=== PATIENT | male | born 1985 | race Caucasian/White ===

== ENCOUNTER 2017-06-24 21:03 | Emergency (ER) | payer OTHER ==
[2017-06-24] MEDS ORDERED: ASPIRIN 81 MG CHEWABLE TABLETS PO ONE (21:19)
--- NOTE | 2017-06-24 21:19 | PDOC ---
Rapid Medical Evaluation Time Seen by Provider: 06/24/17 21:14 Medical Evaluation: 06/24/17 21:14 I have performed a brief in-person evaluation of this patient. The patient presents with a chief complaint of: chest pain, worse with respiration, dizziness, pain to mouth "like throbbing inside", symptoms x "months", taking tylenol for pain Pertinent physical exam findings: BP 170/110 I have ordered the following: ekg, cxr, labs The patient will proceed to the ED for further evaluation. Discharge Disposition - Diagnosis Chest pain, Elevated blood pressure reading - Referrals - Patient Instructions - Post Discharge Activity
[2017-06-24 21:38] LABS: BASOPHIL 0.6 % (0-2.0); MCH 29.4 pg (25.7-33.7); MEAN CELL VOLUME 86.3 fl (80-96); MEAN PLT VOLUME 10.5 fl (7.5-11.1); NEUTROPHILS 56.3 % (42.8-82.8); PLATELET COUNT 154 K/MM3 (134-434); RDW 13.6 % (11.9-15.9); WHITE BLOOD COUNT 6.7 K/mm3 (4.0-10.0)
[2017-06-24 21:47] VITALS: TEMP 97.9; BMI 28.6
[2017-06-24] MEDS ORDERED: ASPIRIN 81 MG CHEWABLE TABLETS ONE (21:51)
[2017-06-24 21:56] LABS: INR 1.11 (0.82-1.09); PROTHROMBIN TIME (PATIENT) 12.5 SEC (9.98-11.88)
[2017-06-24 22:16] LABS: ALBUMIN 3.7 g/dl (3.4-5.0); ANION GAP 6 (8-16); CALCIUM 8.2 mg/dL (8.5-10.1); CO2 30 mmol/L (21-32); CREATININE 0.9 mg/dL (0.7-1.3); GLUCOSE,RANDOM 154 mg/dL (74-106); MAGNESIUM 2.1 mg/dL (1.8-2.4); SGOT/AST 31 U/L (15-37); SGPT/ALT 84 U/L (12-78)
[2017-06-24 22:20] LABS: ALK PHOS 65 U/L (45-117); BILIRUBIN,TOTAL 0.7 mg/dL (0.2-1.0); CPK 288 IU/L (39-308); TOT PROT 6.8 g/dl (6.4-8.2); TROPONIN I < 0.02 ng/ml (0.00-0.05)
--- NOTE | 2017-06-24 22:30 | PDOC ---
History of Present Illness - General History Source: Patient Exam Limitations: No Limitations - History of Present Illness Initial Comments: 06/24/17 22:54 The patient is a 31 year old male, with no significant past medical history, who presents to the emergency department complaining of intermittent headaches and chest pain for approximately 5 months. The patient reports he has episodes where he feels like his bp is high, but never actually measured it. With these episodes he reports associated chest pain and headache, which are nonradiating in nature. Patient reports the elevated bp could be due to his nerves, but lately his episodes have been happening more often than usual. He denies any associated diaphoresis, palpitations, shortness of breath, or lower extremity edema. He denies any changes in vision, dizziness, lightheadedness, or chills. He denies any recent travel or sick contacts. Allergies: NKDA Past Surgical History: None reported. Social History: Non smoker. No ETOH or recreational drug use. No cocaine use. Family History: Mother recently diagnosed with hypertension <Shira Patel - Last Filed: 06/24/17 23:41> - General History Source: Patient <Jamar Johnson - Last Filed: 06/24/17 23:48> - General Chief Complaint: Chest Pain Stated Complaint: CHEST PAIN Time Seen by Provider: 06/24/17 21:14 Past History <Shira Patel - Last Filed: 06/24/17 23:41> - Past Medical History COPD: No - Suicide/Smoking/Psychosocial Hx Smoking History: Never smoked Have you smoked in the past 12 months: No Information on smoking cessation initiated: No Hx Alcohol Use: No Drug/Substance Use Hx: No Substance Use Type: None <LonniekatJamar - Last Filed: 06/24/17 23:48> - Past Medical History Allergies/Adverse Reactions: Allergies Allergy/AdvReac Type Severity Reaction Status Date / Time No Known Allergies Allergy Verified 06/24/17 21:19 Home Medications: Ambulatory Orders NK [No Known Home Medication] 06/24/17 Review of Systems - Review of Systems Able to Perform ROS?: Yes Comments:: 06/24/17 22:54 CONSTITUTIONAL: Absent: fever, no chills, no fatigue EYES: Absent: visual changes ENT: Absent: ear pain, no sore throat CARDIOVASCULAR: Present: chest pain Absent: no palpitations RESPIRATORY: Absent: cough, no SOB GI: Absent: abdominal pain, no nausea, no vomiting, no constipation, no diarrhea GENITOURINARY: Absent: dysuria, no frequency, no hematuria MUSCULOSKELETAL: Absent: back pain, no arthralgia, no myalgia SKIN: Absent: rash NEURO: Present: headache Absent: numbness, tingling, dizziness, lightheadedness <JorgePeacejakob - Last Filed: 06/24/17 23:41> *Physical Exam - Vital Signs Last Vital Signs Temp Pulse Resp BP Pulse Ox 97.9 F 81 17 136/91 99 06/24/17 21:14 06/24/17 22:41 06/24/17 21:14 06/24/17 22:41 06/24/17 22:41 - Physical Exam Comments: 06/24/17 22:55 GENERAL: Well-appearing, well-nourished. No apparent distress. BP intially 170/100. HEENT: Normocephalic, atraumatic. PERRL, EOM intact. CARDIOVASCULAR: Normal S1, S2. Regular rate and rhythm. PULMONARY: Clear to auscultation bilaterally. ABDOMEN: Soft, non-distended, non-tender. EXTREMITIES: Normal ROM in all four extremities. No gross deformities. SKIN: Warm, dry. No rash NEUROLOGICAL: No focal neurological deficits. <JorgePeacejakob - Last Filed: 06/24/17 23:41> - Vital Signs Last Vital Signs Temp Pulse Resp BP Pulse Ox 97.9 F 98 H 17 170/110 100 06/24/17 21:14 06/24/17 21:14 06/24/17 21:14 06/24/17 21:14 06/24/17 21:14 <Jamar Johnson - Last Filed: 06/24/17 23:48> ED Treatment Course - LABORATORY CBC & Chemistry Diagram: 06/24/17 21:30 06/24/17 21:30 - ADDITIONAL ORDERS Additional order review: Laboratory Results 06/24/17 06/24/17 21:30 21:30 PT with INR 12.50 H INR 1.11 Sodium 139 Potassium 3.4 L Chloride 103 Carbon Dioxide 30 Anion Gap 6 L BUN 14 Creatinine 0.9 Creat Clearance w eGFR > 60 Random Glucose 154 H Calcium 8.2 L Magnesium 2.1 Total Bilirubin 0.7 AST 31 ALT 84 H Alkaline Phosphatase 65 Creatine Kinase 288 Troponin I < 0.02 Total Protein 6.8 Albumin 3.7 06/24/17 21:30 RBC 5.65 H MCV 86.3 MCHC 34.0 RDW 13.6 MPV 10.5 Neutrophils % 56.3 Lymphocytes % 33.8 Monocytes % 8.3 Eosinophils % 1.0 Basophils % 0.6 - RADIOLOGY Radiology Studies Ordered: 06/24/17 22:56 EXAM: CXR INTERPRETED BY: Dr. Morel REVIEWED BY: Dr. Johnson IMPRESSION: Normal chest. Radiograph Interpretation: 06/24/17 23:42 EXAM: Head CT INTERPRETED BY: Dr. Morel REVIEWED BY: Dr. Johnson IMPRESSIO: Normal CT scan of the head with no evidence of acute intracranial pathology - Medications Given in the ED: ED Medications Discontinued Medications Generic Name Dose Route Start Last Admin Trade Name Freq PRN Reason Stop Dose Admin Aspirin 162 mg 06/24/17 21:19 06/24/17 22:25 Asa - PO 06/24/17 21:20 162 mg ONCE ONE Administration <Shira Patel - Last Filed: 06/24/17 23:41> - LABORATORY CBC & Chemistry Diagram: 06/24/17 21:30 06/24/17 21:30 - ADDITIONAL ORDERS Additional order review: Laboratory Results 06/24/17 21:30 PT with INR 12.50 H INR 1.11 06/24/17 21:30 RBC 5.65 H MCV 86.3 MCHC 34.0 RDW 13.6 MPV 10.5 Neutrophils % 56.3 Lymphocytes % 33.8 Monocytes % 8.3 Eosinophils % 1.0 Basophils % 0.6 - Medications Given in the ED: ED Medications Discontinued Medications Generic Name Dose Route Start Last Admin Trade Name Freq PRN Reason Stop Dose Admin Aspirin 162 mg 06/24/17 21:19 06/24/17 22:25 Asa - PO 06/24/17 21:20 162 mg ONCE ONE Administration <Jamar Johnson - Last Filed: 06/24/17 23:48> Medical Decision Making - Medical Decision Making 06/24/17 23:46 Dr. Johnson: The scribe's documentation has been prepared under my direction and personally reviewed by me in its entirery. I confirm that the note above accurately reflects all work, treatment, procedures, and medical decision making performed by me. Pt ct scan and lab work return to be negative. Pt advised to follow up with internal medicine for evaluation of blood pressure for subsequent visit. <Jamar Johnson - Last Filed: 06/24/17 23:48> *DC/Admit/Observation/Transfer - Attestations Scribe Attestion: 06/24/17 22:55 Documentation prepared by Shira Patel, acting as medical review specialist for Jamar Johnson DO. <Shira Patel - Last Filed: 06/24/17 23:41> - Discharge Dispostion Admit: No <Jamar Johnson - Last Filed: 06/24/17 23:48> Diagnosis at time of Disposition: Chest pain, Elevated blood pressure reading, Anxiety - Discharge Dispostion Disposition: HOME Condition at time of disposition: Stable - Referrals Referrals: Vaishali Armijo MD [Staff Physician] - - Patient Instructions Printed Discharge Instructions: DI for Chest Pain, DI for Anxiety -- Adult Additional Instructions: PLease follow up with the doctor referred to you to monitor your blood pressure. Return if any problems Print Language: SOUTH SUDANESE
[2017-06-24 22:42] VITALS: BP 136/91; PULSE 81
--- NOTE | 2017-06-25 09:15 | EKG ---
Test Reason : Blood Pressure : / mmHG Vent. Rate : 076 BPM Atrial Rate : 076 BPM P-R Int : 160 ms QRS Dur : 092 ms QT Int : 364 ms P-R-T Axes : 054 090 017 degrees QTc Int : 409 ms NORMAL SINUS RHYTHM WITH SINUS ARRHYTHMIA RIGHTWARD AXIS NON-SPECIFIC INTRA-VENTRICULAR CONDUCTION DELAY NO PREVIOUS ECGS AVAILABLE Confirmed by MATY LACY MD ([id number]) on 06/25/2017 9:14:52 AM Referred By: Confirmed By:MATY LACY MD
== END 2017-06-24 23:54 | disposition home or self-care (01) ==
LOC: JER 21:03
DX: R07.89 Other chest pain (principal); R03.0 Elevated blood-pressure reading, without diagnosis of hypertension; F41.9 Anxiety disorder, unspecified
CPT/HCPCS: 36415; 70450-TC; 71020-TC; 80053; 82550; 82553; 83735; 84484; 85025; 85610; 93005; 93010; 99281-25

== ENCOUNTER 2017-11-08 20:52 | Emergency (ER) | payer SELFPAY ==
[2017-11-08 20:58] VITALS: BP 150/90; PULSE 71; TEMP 98.3; BMI 36.3
--- NOTE | 2017-11-08 20:59 | PDOC ---
Rapid Medical Evaluation Time Seen by Provider: 11/08/17 20:54 Medical Evaluation: Allergies Allergy/AdvReac Type Severity Reaction Status Date / Time No Known Allergies Allergy Verified 06/24/17 21:19 I have performed a brief in-person evaluation of this patient. The patient presents with a chief complaint of: lower gum pain x 6 months. has taken tylenol. Has not seen a dentist Pertinent physical exam findings: erythematous lower gingiva, growing over bottom of teeth. Bleeding started with minimal pressure. No painful teeth or obvious dental caries. I have ordered the following: motrin. pt has gingivitis. Will discharge from triage and provide dental referral. Discharge Disposition - Diagnosis Gingivitis - Referrals - Patient Instructions Printed Discharge Instructions: DI for Gingivitis Additional Instructions: Discharge Instructions: -You have gingivitis -You have to floss your teeth every single day -You need to rinse with Listerine every day -You can take Motrin for pain with food -You must follow up with a dentist as soon as possible: [facility] [address] Open 4:00 PM - 9:00 PM Instrucciones de descarga: -tiene gingivitis -usted tiene que FLOSS jakcelin dientes cada solo da -es necesario enjuagar con Listerine todos los allison -Usted puede lucia Motrin para el dolor con la comida -usted debe claudio seguimiento a un dentista lo antes posible: [facility] [address] abierto 4:00 PM-9:00 PM Print Language: MALAGASY - Post Discharge Activity
[2017-11-08] MEDS ORDERED: IBUPROFEN 600 MG TABLET (FP) PO ONE (21:00)
== END 2017-11-08 21:22 | disposition home or self-care (01) ==
LOC: JERFT 20:52
DX: K05.10 Chronic gingivitis, plaque induced (principal)
CPT/HCPCS: 99281-25

== ENCOUNTER 2018-03-27 12:02 | Emergency (ER) | payer SELFPAY ==
[2018-03-27 12:18] VITALS: BMI 30.2
[2018-03-27] MEDS ORDERED: DEXAMETHASONE SOD PHOSPHATE 20 MG/5 ML VIAL IVPB ONE (12:39)
[2018-03-27] MEDS ORDERED: KETOROLAC TROMETHAMINE 30 MG/1 ML VIAL IVPUSH ONE (12:39)
[2018-03-27] MEDS ORDERED: CLINDAMYCIN 600MG PREMIX IVPB 600 MG/50 ML BAG IVPB ONE ×2 (12:41→12:55)
--- NOTE | 2018-03-27 12:44 | PDOC ---
History of Present Illness - General Chief Complaint: Sore Throat Stated Complaint: SORE THROAT Time Seen by Provider: 03/27/18 12:19 History Source: Patient Exam Limitations: No Limitations - History of Present Illness Initial Comments: 03/27/18 12:43 32 yr male with sore throat for 3 days, unmeasured fever last night. Pt states increasing pain and diff swallowing right side. no PMHX. no allergies. 03/27/18 13:25 Severity: moderate Past History - Past Medical History Allergies/Adverse Reactions: Allergies Allergy/AdvReac Type Severity Reaction Status Date / Time No Known Allergies Allergy Verified 03/27/18 12:18 Home Medications: Ambulatory Orders Clindamycin [Cleocin -] 300 mg PO Q6HPO #40 capsule 03/27/18 Ibuprofen 600 mg PO Q6H #20 tablet 03/27/18 Prednisone [Deltasone] 60 mg PO DAILY #12 tablet 03/27/18 COPD: No - Suicide/Smoking/Psychosocial Hx Smoking History: Never smoked Have you smoked in the past 12 months: No Hx Alcohol Use: No Drug/Substance Use Hx: No Substance Use Type: None Review of Systems - Review of Systems Able to Perform ROS?: Yes Is the patient limited Welsh proficient: Yes Constitutional: Yes: Symptoms Reported, Fever HEENTM: Yes: Throat Pain, Throat Swelling, Difficulty Swallowing *Physical Exam - Vital Signs Last Vital Signs Temp Pulse Resp BP Pulse Ox 99.6 F 100 H 20 142/97 99 03/27/18 12:16 03/27/18 12:16 03/27/18 12:16 03/27/18 12:16 03/27/18 12:16 - Physical Exam General Appearance: Yes: Nourished, Appropriately Dressed HEENT: positive: EOMI, JOSÉ, Pharyngeal Erythema, Other ( pooling of secretions , edematous right tonsil with trismus, right ear and dental pain ) Neck: positive: Lymphadenopathy (R). negative: Tender Respiratory/Chest: positive: Lungs Clear, Normal Breath Sounds. negative: Chest Tender Cardiovascular: positive: Regular Rhythm, Regular Rate Musculoskeletal: positive: Normal Inspection Extremity: positive: Normal Capillary Refill, Normal Inspection, Normal Range of Motion Integumentary: positive: Normal Color, Dry, Warm ED Treatment Course - LABORATORY CBC & Chemistry Diagram: 03/27/18 14:22 03/27/18 14:22 Medical Decision Making - Medical Decision Making 03/27/18 12:47 cc: sore throat , fever , diff swallowing. pain is localized on the right side to ear, positive trismus will swab for strep will transfer to the main for further care R/O CLIENT SERVICE COORDINATOR IV steroids , toradol, IV clindamycin endorsed to Suzanne FARMER who will assume care charge nurse Gia parsons. *DC/Admit/Observation/Transfer Diagnosis at time of Disposition: Peritonsillar cellulitis - Discharge Dispostion Disposition: HOME Condition at time of disposition: Improved - Prescriptions Prescriptions: Clindamycin [Cleocin -] 300 mg PO Q6HPO #40 capsule Ibuprofen 600 mg PO Q6H #20 tablet Prednisone [Deltasone] 60 mg PO DAILY #12 tablet - Referrals Referrals: Abhinav Murphy MD [Staff Physician] - Call tomorrow - Patient Instructions Printed Discharge Instructions: DI for Peritonsillar Abscess -- Adult Additional Instructions: Discharge Instructions: -You have an abscess (which is a bad infection) in your throat -3 prescriptions have been sent to your pharmacy for medications; please take as prescribed -Please call Dr. Murphy first thing tomorrow morning and schedule a follow up appointment -Please drink and eat only cold and soft foods to prevent pain with swallowing -Return to the ER immediately if you cannot swallow your own spit, have trouble breathing or experience any worsening of symptoms Instrucciones de descarga: -Tienes un absceso (que es mario infeccin grave) en la garganta -3 recetas barber sido enviadas a grimes farmacia para medicamentos; por favor tome segn lo prescrito -Por favor, llame al Dr. Murphy a primera hora de la maana y programe mario krishan de seguimiento - Por favor, sean y coma solo alimentos fros y suaves para evitar el dolor al tragar -Vuelva a la marissa de emergencia de inmediato si no puede tragar grimes propia saliva , tiene problemas para respirar o experimenta un empeoramiento de los sntomas Print Language: GREENLANDIC - Post Discharge Activity Forms/Work/School Notes: Back to Work
[2018-03-27] MEDS ORDERED: NORMAL SALINE FLUSH 0.9% 2.5 ML SYRINGE IVPUSH SCH (12:45)
[2018-03-27] MEDS ORDERED: SODIUM CHLORIDE 500 ML IV STA (12:52)
[2018-03-27] MEDS ORDERED: KETOROLAC TROMETHAMINE 30 MG/1 ML VIAL ONE (12:55)
[2018-03-27] MEDS ORDERED: DEXAMETHASONE SOD PHOSPHATE 10 MG/1 ML VIAL ONE (12:55)
--- NOTE | 2018-03-27 13:22 | PDOC ---
History of Present Illness - General Chief Complaint: Sore Throat Stated Complaint: SORE THROAT Time Seen by Provider: 03/27/18 12:19 History Source: Patient Exam Limitations: No Limitations - History of Present Illness Initial Comments: CHIEF COMPLAINT: 32 y/o afebrile male with no significant PMH c/o sore throat and fever x 3 days. HISTORY OF PRESENT ILLNESS: The patient states his sore throat has worsened and he can't really swallow well. He denies MABRY, neck pain, n/v/d, cough, CP, SOB, abd pain, back pain, hematuria, dysuria, sick contacts. He was initially evaluated in [facility], thought to have a peritonsillar abscess, and sent to main ER for further evaluation. Vital signs on arrival are notable for pulse of 100. REVIEW OF SYSTEMS: GENERAL/CONSTITUTIONAL: +fever. No weakness. No weight change. HEAD, EYES, EARS, NOSE AND THROAT: +sore throat. +difficulty swallowing. No change in vision. No ear pain or discharge. CARDIOVASCULAR: No chest pain or shortness of breath. RESPIRATORY: No cough, wheezing, or hemoptysis. GASTROINTESTINAL: No abd pain, nausea, vomiting, diarrhea. GENITOURINARY: No dysuria, frequency, or change in urination. MUSCULOSKELETAL: No joint or muscle swelling or pain. No neck or back pain. SKIN: No rash or easy bruising. NEUROLOGIC: No headache, vertigo, loss of consciousness, or loss of sensation. PHYSICAL EXAM: GENERAL: The patient is awake, alert, and fully oriented, in no acute distress. He is well appearing and handling his own oral secretions well. HEAD: Normal with no signs of trauma. ENT: Pupils equal, round and reactive to light, extraocular movements intact, sclera anicteric, conjunctiva clear. Minimal swelling to right submandibular space. ERythematous and edematous tonsils, R much worse than L with 2 finger breath trismus, uvula deviation and swelling of the soft palate on the right side. LUNGS: Clear to auscultation bilaterally. Normal excursion. No respiratory distress or use of accessory muscles. CV: RRR, S1/S2, no MRG. Cap refill < 2 sec. ABDOMEN: Soft, non-distended, non-tender even to deep palpation, no hepatomegaly or splenomegaly, no masses. EXTREMITIES: Normal range of motion, no edema. NEUROLOGICAL: Normal speech, normal gait. CN II-XII grossly intact. SKIN: Warm, dry, normal turgor, no rashes or lesions noted. Past History - Past Medical History Allergies/Adverse Reactions: Allergies Allergy/AdvReac Type Severity Reaction Status Date / Time No Known Allergies Allergy Verified 03/27/18 12:18 Home Medications: Ambulatory Orders NK [No Known Home Medication] 06/24/17 COPD: No - Suicide/Smoking/Psychosocial Hx Smoking History: Never smoked Have you smoked in the past 12 months: No Hx Alcohol Use: No Drug/Substance Use Hx: No Substance Use Type: None Review of Systems - Review of Systems Is the patient limited Azeri proficient: Yes *Physical Exam - Vital Signs Last Vital Signs Temp Pulse Resp BP Pulse Ox 99.6 F 100 H 20 142/97 99 03/27/18 12:16 03/27/18 12:16 03/27/18 12:16 03/27/18 12:16 03/27/18 12:16 ED Treatment Course - LABORATORY CBC & Chemistry Diagram: 03/27/18 14:22 03/27/18 14:22 - ADDITIONAL ORDERS Additional order review: 03/27/18 12:00 Group A Strep Rapid Antigen - Preliminary Throat - Medications Given in the ED: ED Medications Discontinued Medications Generic Name Dose Route Start Last Admin Trade Name Jim PRN Reason Stop Dose Admin Dexamethasone Sodium Phosphate 10 mg 03/27/18 12:39 03/27/18 13:05 Decadron Injection - IVPB 03/27/18 12:40 10 mg ONCE ONE Administration Clindamycin Phosphate 600 mg in 50 mls @ 100 mls/hr 03/27/18 12:41 03/27/18 13:05 Cleocin 600 Mg Premix Ivpb - IVPB 03/27/18 13:10 100 mls/hr ONCE ONE Administration Protocol Ketorolac Tromethamine 30 mg 03/27/18 12:39 03/27/18 13:05 Toradol Injection - IVPUSH 03/27/18 12:40 30 mg ONCE ONE Administration Medical Decision Making - Medical Decision Making A/P: 32 y/o male with possible right peritonsillar abscess. Patient was given decadron, Toradol and IV clinda in fastrack. Plan is to draw labs and send for CT scan of soft tissues of neck. CT scan soft tissues of neck IMPRESSION: Right peritonsillar swelling suspicious for a developing abscess. Spoke with Dr. Smith, ENT, who suggested abscess drainage if necessary and f/ u in ENT office. Patient was able to tolerate PO intake, is breathing normally and tolerating his own oral secretions. There is no definite walled off abscess seen on CT so will not attempt drainage at this time. Patient does admit to feeling better. Will discharge to home with rx for clinda, prednisone and ibuprofen. Instructed him to call Dr. Murphy's office tomorrow to schedule follow up appointment as soon as possible and return to the ER immediately if he develops worsening of symptoms or if he can't keep his own saliva in his mouth. The patient verbalizes understanding of all instructions, has no further questions and is awaiting discharge. *DC/Admit/Observation/Transfer Diagnosis at time of Disposition: Peritonsillar cellulitis - Discharge Dispostion Disposition: HOME Condition at time of disposition: Improved - Referrals Referrals: Abhinav Murphy MD [Staff Physician] - Call tomorrow - Patient Instructions Printed Discharge Instructions: DI for Peritonsillar Abscess -- Adult Additional Instructions: Discharge Instructions: -You have an abscess (which is a bad infection) in your throat -3 prescriptions have been sent to your pharmacy for medications; please take as prescribed -Please call Dr. Murphy first thing tomorrow morning and schedule a follow up appointment -Please drink and eat only cold and soft foods to prevent pain with swallowing -Return to the ER immediately if you cannot swallow your own spit, have trouble breathing or experience any worsening of symptoms Instrucciones de descarga: -Tienes un absceso (que es mario infeccin grave) en la garganta -3 recetas barber sido enviadas a grimes farmacia para medicamentos; por favor tome segn lo prescrito -Por favor, llame al Dr. Murphy a primera hora de la maana y programe mario krishan de seguimiento - Por favor, sena y coma solo alimentos fros y suaves para evitar el dolor al tragar -Vuelva a la marissa de emergencia de inmediato si no puede tragar grimes propia saliva , tiene problemas para respirar o experimenta un empeoramiento de los sntomas Print Language: LITHUANIAN - Post Discharge Activity Forms/Work/School Notes: Back to Work
[2018-03-27 14:36] LABS: BASO % 0.6 % (0-2.0); HEMATOCRIT 45.9 % (35.4-49); HEMOGLOBIN 15.9 GM/dL (11.7-16.9); LYMPH % 7.9 % (8-40); MCH 30.1 pg (25.7-33.7); MCHC 34.7 g/dl (32.0-35.9); MEAN CELL VOLUME 86.7 fl (80-96); MEAN PLT VOLUME 10.6 fl (7.5-11.1); MONO % 4.2 % (3.8-10.2); NEUT % 87.3 % (42.8-82.8); PLATELET COUNT 123 K/MM3 (134-434); RBC 5.29 M/mm3 (4.00-5.60); RDW 13.1 % (11.9-15.9); WHITE BLOOD COUNT 7.1 K/mm3 (4.0-10.0)
[2018-03-27 15:01] LABS: ALBUMIN 3.5 g/dl (3.4-5.0); ALK PHOS 47 U/L (45-117); ANION GAP 11 MMOL/L (8-16); BILIRUBIN,TOTAL 1.2 mg/dL (0.2-1.0); BLOOD UREA NITROGEN 16 mg/dL (7-18); CALCIUM 8.1 mg/dL (8.5-10.1); CHLORIDE 106 mmol/L (98-107); CO2 26 mmol/L (21-32); CREATININE 0.8 mg/dL (0.55-1.3); GLUCOSE,RANDOM 104 mg/dL (74-106); POTASSIUM 3.5 mmol/L (3.5-5.1); SGOT/AST 30 U/L (15-37); SGPT/ALT 98 U/L (13-61); SODIUM 143 mmol/L (136-145)
[2018-03-27 15:48] VITALS: TEMP 98
[2018-03-27 16:44] VITALS: BP 131/85; PULSE 85
== END 2018-03-27 16:44 | disposition home or self-care (01) ==
LOC: JERFT 12:02 → JER 12:02
PROC: 3E03329 Introduction of Other Anti-infective into Peripheral Vein, Percutaneous Approach (ICD-10-PCS; principal; 2018-03-27)
PROC: 3E03329 Introduction of Other Anti-infective into Peripheral Vein, Percutaneous Approach (ICD-10-PCS; 2018-03-27)
PROC: 3E0333Z Introduction of Anti-inflammatory into Peripheral Vein, Percutaneous Approach (ICD-10-PCS; 2018-03-27)
PROC: 3E0337Z Introduction of Electrolytic and Water Balance Substance into Peripheral Vein, Percutaneous Approach (ICD-10-PCS; 2018-03-27)
DX: J36 Peritonsillar abscess (principal)
CPT/HCPCS: 36415; 70490-TC; 80053; 85025; 87070; 87430; 99284-25

== ENCOUNTER 2023-11-06 03:10 | Emergency (ER) | payer SELFPAY ==
[2023-11-06 03:19] VITALS: BP 131/87; PULSE 99; RESP 18; TEMP 97.8; BMI 28.3
[2023-11-06] MEDS ORDERED: IBUPROFEN 600 MG TABLET (FP) PO ONE (04:36)
[2023-11-06] MEDS: IBUPROFEN 600 MG TABLET (FP) PO ONE (04:46)
== END 2023-11-06 05:19 | disposition home or self-care (01) ==
LOC: JER 03:10
DX: S60.946A Unspecified superficial injury of right little finger, initial encounter (principal); X58.XXXA Exposure to other specified factors, initial encounter
CPT/HCPCS: 73130-TC-RT-FY; 99283-25